=== PATIENT | male | born 1935 | race Caucasian/White ===

== ENCOUNTER → 2019-02-05 | Outpatient (CLI) | payer MEDICARE, OTHER ==
[~2019-02-05] MED LIST: REGADENOSON INJ 0.4 MG/5 ML DISP.SYRIN IV ONE
--- NOTE | 2019-02-05 22:21 | DRAGON STRESS TEST REPORT ---
Intravenous Lexiscan Cardiolite stress test using single photon emmision computerized tomography. Date of procedure: 02/05/2019. Ordering Provider: Dr. Gera Sims. Patient's status: Out Patient Indication: Dyspnea on exertion.. Coronary risk factors: Age, hypertension, dyslipidemia, and family history of coronary artery disease Resting EKG: Sinus Rhythm. EKG within normal limits. Stress EKG: No changes of ischemia. The patient had no chest pain or discomfort, and there were no arrhythmias seen. Reason for termination: Protocol. Conclusions: Normal EKG and hemodynamic response to IV Lexiscan. Nuclear data: At rest the patient was given 13.84 millicuries of technetium 99m sestamibi injected intravenously. As per protocol rest non gated SPECT images were obtained. Subsequently the patient was given intravenous Lexiscan at a dose of 0.4 mg in 5 mL intravenously, followed by flush with normal saline. Subsequently the stress dose of 41.2 millicuries of technetium 99m sestamibi was injected intravenously. As per protocol stress gated images were obtained. Nuclear interpretation: Review of images showed that all segments of the myocardium had normal perfusion at rest, and normal perfusion post stress with IV Lexiscan. All segments of the myocardium had normal motion, contraction, and thickening by gated study. T. I D. ratio was normal at 0.97. There is no transient ischemic dilatation of the left ventricle. Computer read rest, and stress left ventricular ejection fraction were 79 %, and 76 %, Conclusion: 1. There is no scintigraphic evidence of Lexiscan induced myocardial ischemia. 2. There is no scintigraphic evidence of myocardial infarction/scar. Recommendations: Aggressive risk factor modification, and treating the underlying co- morbidities. MTDD
== END ==
LOC: RAD 01-29 07:44
PROVIDERS: ATTEND Internal Medicine
DX: M53.9 Dorsopathy, unspecified (principal); R06.09 Other forms of dyspnea
CPT/HCPCS: 93017; 78452; A9500; J2785; Q9969

== ENCOUNTER 2019-05-09 11:18 | Emergency (ER) | payer MEDICARE, OTHER ==
--- NOTE | 2019-05-09 11:43 | ER Document Report ---
ED Medical Screen (RME) - General Chief Complaint: Numbness of Arm Stated Complaint: NUMBNESS Time Seen by Provider: 05/09/19 11:41 Primary Care Provider: JAYSHREE JACK MD [Primary Care Provider] - Follow up as needed Mode of Arrival: Wheelchair Information source: Patient Notes: 83-year-old male presents to ED for complaint of pain and weakness to the left shoulder and arm. He states the pain and weakness started Sunday night Sunday. He does not have any pain or weakness anywhere else except for this left shoulder and arm. He states he does have shrapnel in this arm x-rayed they should know that. He is alert oriented respirations regular and unlabored there is no confusion at this time. Patient is able to answer all questions appropriately he is able to give history. He is accompanied by his nephew who states he has his normal self except for the pain to weakness into the left shoulder and arm. I have greeted and performed a rapid initial assessment of this patient. A comprehensive ED assessment and evaluation of the patient, analysis of test results and completion of medical decision making process will be conducted by an additional ED providers. TRAVEL OUTSIDE OF THE [place] IN LAST 30 DAYS: No - Related Data Allergies/Adverse Reactions: Sulfa (Sulfonamide Antibiotics) Allergy (Verified 05/09/19 11:19) feet swelling , throat Past Medical History - Social History Chew tobacco use (# tins/day): No Frequency of alcohol use: None Drug Abuse: None - Past Medical History Cardiac Medical History: Reports: Hx Hypertension Denies: Hx Coronary Artery Disease, Hx Heart Attack Pulmonary Medical History: Denies: Hx Asthma, Hx Bronchitis, Hx COPD, Hx Pneumonia Neurological Medical History: Denies: Hx Cerebrovascular Accident, Hx Seizures Renal/ Medical History: Denies: Hx Peritoneal Dialysis GI Medical History: Reports: Hx Hiatal Hernia - TREATED X2. Denies: Hx Hepatitis, Hx Ulcer Musculoskeltal Medical History: Reports Hx Arthritis - back,knees,shoulder Infectious Medical History: Denies: Hx Hepatitis Past Surgical History: Denies: Hx Open Heart Surgery, Hx Pacemaker - Immunizations Hx Diphtheria, Pertussis, Tetanus Vaccination: No Physical Exam - Vital signs Vitals: Temp Pulse Resp BP Pulse Ox 97.9 F 62 16 157/58 H 95 05/09/19 11:21 05/09/19 11:21 05/09/19 11:21 05/09/19 11:21 05/09/19 11:21 Course - Vital Signs Vital signs: Temp Pulse Resp BP Pulse Ox 97.9 F 62 16 157/58 H 95 05/09/19 11:21 05/09/19 11:21 05/09/19 11:21 05/09/19 11:21 05/09/19 11:21 Doctor's Discharge - Discharge Referrals: JAYSHREE JACK MD [Primary Care Provider] - Follow up as needed
--- NOTE | 2019-05-09 11:57 | ER Document Report ---
ED General - General Chief Complaint: Numbness of Arm Stated Complaint: NUMBNESS Time Seen by Provider: 05/09/19 11:41 Primary Care Provider: JAYSHREE JACK MD [Primary Care Provider] - Follow up as needed Mode of Arrival: Wheelchair TRAVEL OUTSIDE OF THE [place] IN LAST 30 DAYS: No - HPI Notes: 83-year-old male to the emergency department with complaints of left shoulder pain and inability to raise it above his head since Sunday. He denies any favio trauma, blunt force, falls. 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 He moves her often to change her diaper and rotate her. He states that he notices the pain mostly when he is lifting his arm above his head. He states that this arm has shrapnel in it from [place] injury. He states that he sees Dr. Cortez about the shoulder but has not called him about this. He also admits some numbness and tingling from the shoulder down the arm. He denies any fevers, chills, chest pain, shortness of breath. He states that 2 nights ago he woke up and was sweaty. He states that he is never had a heart attack. He has not been vomiting. He denies any difficulty speaking, blurry vision. - Related Data Allergies/Adverse Reactions: Sulfa (Sulfonamide Antibiotics) Allergy (Verified 05/09/19 11:19) feet swelling , throat Past Medical History - General Information source: Patient, Relative - Social History Smoking Status: Never Smoker Chew tobacco use (# tins/day): No Frequency of alcohol use: None Drug Abuse: None Family History: Reviewed & Not Pertinent Patient has suicidal ideation: No Patient has homicidal ideation: No - Past Medical History Cardiac Medical History: Reports: Hx Hypertension Denies: Hx Coronary Artery Disease, Hx Heart Attack Pulmonary Medical History: Denies: Hx Asthma, Hx Bronchitis, Hx COPD, Hx Pneumonia Neurological Medical History: Denies: Hx Cerebrovascular Accident, Hx Seizures Renal/ Medical History: Denies: Hx Peritoneal Dialysis GI Medical History: Reports: Hx Hiatal Hernia - TREATED X2. Denies: Hx Hepatitis, Hx Ulcer Musculoskeletal Medical History: Reports Hx Arthritis - back,knees,shoulder Infectious Medical History: Denies: Hx Hepatitis Past Surgical History: Denies: Hx Open Heart Surgery, Hx Pacemaker - Immunizations Hx Diphtheria, Pertussis, Tetanus Vaccination: No Review of Systems - Review of Systems Constitutional: Diaphoresis - One episode of diaphoresis 2 nights ago. denies: Chills, Fever EENT: denies: Blurred vision, Double vision Cardiovascular: denies: Chest pain, Palpitations, Dyspnea, Syncope, Lightheaded, Edema Respiratory: denies: Cough, Short of breath Gastrointestinal: denies: Abdominal pain, Diarrhea, Nausea, Vomiting Musculoskeletal: See HPI, Joint pain. denies: Neck pain Skin: No symptoms reported Neurological/Psychological: See HPI, Numbness -: Yes All other systems reviewed and negative Physical Exam - Vital signs Vitals: Temp Pulse Resp BP Pulse Ox 97.9 F 62 16 157/58 H 95 05/09/19 11:21 05/09/19 11:21 05/09/19 11:21 05/09/19 11:21 05/09/19 11:21 Interpretation: Hypertensive - General General appearance: Appears well, Alert In distress: None - HEENT Head: Normocephalic, Atraumatic Eyes: Normal Pupils: PERRL Ears: Normal External canal: Normal Tympanic membrane: Normal Sinus: Normal Nasal: Normal Mouth/Lips: Normal Mucous membranes: Normal Pharynx: Normal Neck: Normal, Supple. No: Meningismus, Neck mass - Respiratory Respiratory status: No respiratory distress Chest status: Nontender Breath sounds: Normal Chest palpation: Normal - Cardiovascular Rhythm: Regular Heart sounds: Normal auscultation Murmur: No - Abdominal Inspection: Normal Distension: No distension Bowel sounds: Normal Tenderness: Nontender Organomegaly: No organomegaly - Back Back: Normal, Nontender. No: CVA tenderness - Extremities General upper extremity: Normal inspection General lower extremity: Normal inspection Shoulder: Tender - There is tenderness to palpation over the anterior joint line of the left shoulder. There is no evidence of dislocation or separation. There is no gross deformity. There is no erythema or edema noted to the shoulder. Patient has increased pain with forward flexion and extension of the shoulder and passive movement. He is not able to raise the arm above his head greater than 45 degrees without pain. Bilateral handgrips are 5 out of 5 strength. Cap refill is less than 2 seconds. Radial pulses are intact and equal. - Neurological Neuro grossly intact: Yes Cognition: Normal Orientation: AAOx4 Wolfgang Coma Scale Eye Opening: Spontaneous Wolfgang Coma Scale Verbal: Oriented [place] Coma Scale Motor: Obeys Commands [place] Coma Scale Total: 15 Speech: Normal Cranial nerves: Normal. No: Facial palsy, Forehead sparing, Gaze palsy, Sensory deficit, Tongue deviation Motor strength normal: LUE, RUE, LLE, RLE Additional motor exam normals: Equal project geologist, Other - No gross decrease and sensation to bilateral upper extremities Sensory: Normal - Psychological Associated symptoms: Normal affect, Normal mood - Skin Skin Temperature: Warm Skin Moisture: Dry Skin Color: Normal Course - Re-evaluation Re-evalutation: 05/09/[address] Chamberlain, ER attending. We discussed patient's physical exam which is most consistent with a musculoskeletal origin. We did discuss the episode of diaphoresis 2 nights ago and because of his age will obtain an EKG and one troponin. Plan will be if EKG and troponin are reassuring we will disc harge home. Rounded on patient. Discussed his reassuring EKG as well as negative troponin. We discussed concern for overuse syndrome and need to see orthopedist. He does see Dr. Cortez and he would like to continue his care with Dr. Cortez. Patient does have prescriptions for oxycodone but does not like to take it as it makes him constipated. We will opt for some topical treatment for pain control for patient. We will give lidocaine and Voltaren gel to use synergistically. I have asked patient to call orthopedist without fail this afternoon to see if he can move up an appointment with them. Patient agrees with the plan. - Vital Signs Vital signs: Temp Pulse Resp BP Pulse Ox 97.9 F 62 16 157/58 H 95 05/09/19 11:21 05/09/19 11:21 05/09/19 11:21 05/09/19 11:21 05/09/19 11:21 - Diagnostic Test Radiology reviewed: Image reviewed, Reports reviewed Discharge - Discharge Clinical Impression: Left shoulder pain Qualifiers: Chronicity: acute Qualified Code(s): M25.512 - Pain in left shoulder Injury of left shoulder Qualifiers: Encounter type: initial encounter Qualified Code(s): S49.92XA - Unspecified injury of left shoulder and upper arm, initial encounter Condition: Stable Disposition: HOME, SELF-CARE Instructions: Shoulder Injury (OM), Exercise Program for the Shoulder ([facility]) Additional Instructions: FOLLOW UP WITH YOUR ORTHOPEDIST, DR. CORTEZ WITHOUT FAIL TODAY TO TRY TO SCHEDULE AN APPOINTMENT FOR NEXT WEEK. USE TOPICAL CREAMS PRESCRIBED. MAY APPLY HEAT TO THE SHOULDER. RETURN IF ANY CONCERNING OR WORSENING SYMPTOMS. TRY TO REST THE SHOULDER WITH GENTLE STRETCHING. Prescriptions: Lidocaine 15 gm TP TID #1 tube Diclofenac Sodium [Voltaren] 100 gm TP TID #1 tube Referrals: JAYSHREE JACK MD [Primary Care Provider] - Follow up in 3-5 days
--- NOTE | 2019-05-09 12:04 | RADIOLOGY REPORT (SQ) ---
EXAM DESCRIPTION: SHOULDER LEFT 2 OR MORE VIEWS COMPLETED DATE/TIME: 05/09/2019 11:56 am REASON FOR STUDY: pain weakness COMPARISON: None. NUMBER OF VIEWS: Three views. TECHNIQUE: Internal rotation, external rotation, and Y view images acquired of the left shoulder. LIMITATIONS: None. FINDINGS: MINERALIZATION: Normal. BONES: No acute fracture. No worrisome bone lesions. JOINTS: No dislocation. VISUALIZED LUNGS AND RIBS: No pneumothorax. No rib fracture. SOFT TISSUES: Small radiopaque foreign body overlies the proximal humerus. OTHER: No other significant finding. IMPRESSION: Small radiopaque foreign body overlies the proximal humerus. This lies posterior in loc ation on the transscapular Y-view. No acute findings. TECHNICAL DOCUMENTATION: JOB ID: [id number] [employer]- All Rights Reserved Reading location - IP/workstation name: [email or web address]
--- NOTE | 2019-05-09 12:05 | RADIOLOGY REPORT (SQ) ---
EXAM DESCRIPTION: HUMERUS LEFT COMPLETED DATE/TIME: 05/09/2019 11:54 am REASON FOR STUDY: pain weakness COMPARISON: None. NUMBER OF VIEWS: Two views. TECHNIQUE: Two radiographic images were acquired of the left humerus to include elbow and shoulder i n at least one projection. LIMITATIONS: None. FINDINGS: MINERALIZATION: Normal. BONES: No acute fracture or dislocation. No worrisome bone lesions. SOFT TISSUES: Small radiopaque foreign body overlies the proximal humerus. OTHER: No other significant finding. IMPRESSION: Small radiopaque foreign body. No fracture. No focal lesions. TECHNICAL DOCUMENTATION: JOB ID: [id number] [employer]- All Rights Reserved Reading location - IP/workstation name: [email or web address]
[2019-05-09 15:09] VITALS: BP 125/63
--- NOTE | 2019-05-10 19:08 | EKG REPORT ---
SEVERITY:- ABNORMAL ECG - SINUS RHYTHM FIRST DEGREE AV BLOCK : Confirmed by: Mikayla Mathur MD 10-May-2019 19:07:31
== END 2019-05-09 15:08 | disposition home or self-care (01) ==
LOC: ER 11:18
DX: S49.92XA Unspecified injury of left shoulder and upper arm, initial encounter (principal); M25.512 Pain in left shoulder; R20.0 Anesthesia of skin; X58.XXXA Exposure to other specified factors, initial encounter; I10 Essential (primary) hypertension
CPT/HCPCS: 36415; 84484; 93005; 93010; 99284